=== PATIENT | male | born 1960 | race Caucasian/White ===

== ENCOUNTER 2017-12-01 16:19 | Emergency (ER) | payer OTHER ==
[~2017-12-01] VITALS: Ht 180.3 cm; Wt 78.9 kg
--- NOTE | 2017-12-01 16:51 | ED GENERAL ADULT ---
History of Present Illness General Chief Complaint: General Adult Stated Complaint: "INFECTION ON BACK" PER PT Source: patient Exam Limitations: no limitations Vital Signs & Intake/Output Vital Signs & Intake/Output Vital Signs Date Time Temp Pulse Resp B/P B/P Pulse O2 O2 Flow FiO2 Mean Ox Delivery Rate 12/02 1951 97.9 88 16 123/79 99 Room Air 12/01 1704 Room Air 12/01 1646 101.2 12/01 1621 101.2 97 18 147/82 96 Room Air ED Intake and Output 12/02 0000 12/01 1200 Intake Total 1250 Output Total Balance 1250 Intake, IV 1250 Patient 174 lb Weight Weight Reported by Patient Measurement Method Allergies Coded Allergies: No Known Allergies (12/01/17) Reconcile Medications Clindamycin HCl 150 MG CAPSULE 3 CAP PO TID cellulitis Triage Note: 57 Y/O MALE C/O INFECTION ON BACK SINCE MONDAY. STATES AREA BEGAN SMALL RED AREA BUT IS NOW MUCH LARGER. WAS EVAL'D AT WALK IN AND PRESCRIBED KEFLEX, WHICH HAS BEEN TAKING WITH NO CHANGE. PT STATES PMD "TRIED TO DRAIN IT, SHE SQUEEZED IT" BUT NOTHING DRAINED. PT REPORTS FEVERS UP TO 103 AT HOME. 101.2 IN TRIAGE. LARGE AREA NOTED WITH YELLOW CENTER. SURROUDNING REDNESS PRESENT, EXTENDING OUTSIDE AREA MARKED BY WALK IN EVALONSO'D BY GER CARTER IN TRIAGE Triage Nurses Notes Reviewed? yes Onset: Gradual Duration: day(s): Timing: constant HPI: 57-year-old male with no known past medical history sent in by the urgent care center for cellulitis versus abscess to his right upper back 5 days, and now with fevers to 103F over the past few days. Patient reports the area initially started as a small red spot, but has progressively enlarged over the past several days. There was no known trauma or injury to the area. He has not noticed any purulent drainage. He was initially seen by the urgent care 2 days ago and started on Keflex, which he has been taking as prescribed. He took 2 doses Monday, 4 doses yesterday, and 2 doses today. He returned to the urgent care today for a wound check at which time it was noticed that the erythema had extended outside the borders that were previously marked 2 days ago. He was sent to the emergency department for failed outpatient therapy. (Rose CYRSheila) Past History Travel History Traveled to [place] past 21 day No Medical History Any Pertinent Medical History? 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 No (Sheila Manley) Review of Systems Review of Systems Constitutional: Reports: see HPI. EENTM: Reports: no symptoms. Respiratory: Reports: no symptoms. Cardiovascular: Reports: no symptoms. GI: Reports: no symptoms. Genitourinary: Reports: no symptoms. Musculoskeletal: Reports: no symptoms. Skin: Reports: see HPI. Neurological/Psychological: Reports: no symptoms. Hematologic/Endocrine: Reports: no symptoms. Immunologic/Allergic: Reports: no symptoms. All Other Systems: Reviewed and Negative (Sheila Manley) Physical Exam Physical Exam General Appearance: well developed/nourished, no apparent distress, alert, awake Comments: Gen.: Well-nourished, well-developed, no acute distress. Head: Normocephalic, atraumatic. Eyes: Normal inspection bilaterally Ears: Normal inspection bilaterally Nose: Normal inspection Neck: Normal inspection Lungs: clear to auscultation bilaterally, normnal breath sounds Heart: regular rate and rhythm Abdomen: soft and non-tender Back: There is a firm indurated and erythematous region to the right upper back with a central scab, no active purulent drainage Extremities: Normal inspection Neurologic: alert and oriented x3, steady gait Skin: warm and dry Psychiatric: Normal mood and affect, no apparent delusions or hallucinations, behavior appropriate Core Measures ACS in differential dx? No CVA/TIA Diagnosis: No Sepsis Present: No Sepsis Focused Exam Completed? No (Sheila Manley) Progress Differential Diagnoses I considered the following diagnoses in my evaluation of the patient: [ Cellulitis versus abscess versus sepsis] Plan of Care: Orders Procedure Date/time Status BLOOD CULTURE 12/01 162 Active LACTIC ACID 12/01 162 Complete COMPREHENSIVE METABOLIC PANEL 12/01 162 Complete CBC WITHOUT DIFFERENTIAL 12/01 1626 Complete Laboratory Tests 12/01/17 1927: Lactic Acid Cancelled 12/01/17 1635: Anion Gap 11, Estimated GFR > 60, BUN/Creatinine Ratio 14.4, Glucose 114 H, Lactic Acid 0.7, Calcium 9.2, Total Bilirubin 0.8, AST 32, ALT 44, Alkaline Phosphatase 61, Total Protein 7.6, Albumin 4.6, Globulin 3.0, Albumin/Globulin Ratio 1.5, CBC w Diff NO MAN DIFF REQ, RBC 5.23, MCV 90.9, MCH 30.7, MCHC 33.7, RDW 12.4, MPV 7.9, Gran % 84.5 H, Lymphocytes % 8.6 L, Monocytes % 6.9, Eosinophils % 0, Basophils % 0, Absolute Granulocytes 8.4 H, Absolute Lymphocytes 0.9 L, Absolute Monocytes 0.7 H, Absolute Eosinophils 0, Absolute Basophils 0 Microbiology 12/01 163 BLOOD: Blood Culture - RECD 12/01 1634 BLOOD: Blood Culture - RECD 12/01 1626 TRUNK: Culture & Sensitivity - CAN Cancelled: PT.DISCHARGED. 12/01 1626 TRUNK: Gram Stain - CAN Cancelled: PT.DISCHARGED. Labs show normal WBC, but with a mild left shift. Lactic acid is within normal limits. Patient is nontoxic-appearing and has normal vital signs. Attempted I& D but no purulent drainage was expressed. Given that patient was not covered for MRSA with his prior outpatient therapy he was given a single dose of vancomycin in the emergency department and will be switched from Keflex to clindamycin. He was instructed to follow-up for a wound check in 2 days. New borders were marked around his cellulitis. At that time if he is continuing to fail outpatient therapy he will be admitted for IV antibiotics. Given strict return precautions. Initial ED EKG: none (Sheila Manley) Departure Departure Disposition: HOME OR SELF CARE Condition: Stable Clinical Impression Primary Impression: Cellulitis Secondary Impressions: Fever Referrals: Nancy BAILEY,Josiane Pandya (PCP/Family) Additional Instructions: Stop taking Keflex. Begin taking clindamycin as prescribed. Use Tylenol or Motrin as needed for fevers. Return to the emergency department in 2 days for a recheck. Return to the emergency department sooner for any new or worsening symptoms. Departure Forms: Customer Survey General Discharge Information Prescriptions: Current Visit Scripts Clindamycin HCl 3 CAP PO TID #90 CAP (Sheila Manley) PA/CHILD SPECIALIST Co-Sign Statement Statement: ED Attending supervision documentation- I saw and evaluated the patient. I have also reviewed all the pertinent lab results and diagnostic results. I agree with the findings and the plan of care as documented in the PA's/CHILD SPECIALIST's documentation. x I have reviewed the ED Record and agree with the PA's/CHILD SPECIALIST's documentation. [] Additions or exceptions (if any) to the PAs/CHILD SPECIALIST's note and plan are summarized below: [] ([facility] BAILEY,Geovanni) Procedures Incision and Drainage Site: right upper back Blade Size: 11 I & D Procedure: Yes: betadine prep. Progress: Stab incision No purulent drainage expressed No packing placed (Sheila Manley) Critical Care Note Critical Care Note Critical Care Time: non-applicable (Sheila Manley)
[2017-12-01 17:03] LABS: ABSOLUTE BASOPHIL COUNT 0 /CUMM (0.0-0.2); ABSOLUTE EOSINOPHIL COUNT 0 /CUMM (0.0-0.7); ABSOLUTE GRANULOCYTE CT 8.4 /CUMM (1.4-6.5); ABSOLUTE LYMPH COUNT 0.9 /CUMM (1.2-3.4); ABSOLUTE MONOCYTE COUNT 0.7 /CUMM (0.10-0.60); BASOPHIL % 0 % (0.0-2.0); EOSINOPHIL % 0 % (0-5); HEMATOCRIT 47.5 % (42-52); MEAN CORPUSCULAR HGB 30.7 PG (27.0-31.0); MEAN CORPUSCULAR HGB CONC 33.7 G/DL (33.0-37.0); MEAN CORPUSCULAR VOLUME 90.9 FL (80.0-94.0); MEAN PLATELET VOLUME 7.9 FL (7.4-10.4); PLATELET COUNT 238 /CUMM (130-400); RBC DISTRIBUTION WIDTH 12.4 % (11.5-14.5); RED BLOOD CELL CT 5.23 /CUMM (4.70-6.10); WHITE BLOOD CELL COUNT 9.9 /CUMM (4.8-10.8)
[2017-12-01 17:04] LABS: GRANULOCYTE % 84.5 % (42.2-75.2)
[2017-12-01] MEDS ORDERED: CLINDAMYCIN HC150 M1 PO (19:23)
[2017-12-01 19:52] VITALS: BP 123/79
== END 2017-12-01 19:53 ==
LOC: ERH 16:19
PROVIDERS: Physician Assistant
DX: L03.312 Cellulitis of back [any part except buttock and flank] (principal)
CPT/HCPCS: 87040; 87070; 96374; J3370